=== PATIENT | male | born 1960 | race Caucasian/White ===

== ENCOUNTER → 2017-08-02 | Outpatient (CLI) | payer OTHER ==
[~2017-08-02] MED LIST: CEPHALEXIN 500500 M3 PO; HYDROCODONE-AP1 EAC6 PO; IBUPROFEN 800800 M1 PO; JANUMET 50-1,01 EACH PO; LIPITOR 20 MG T20 M1 PO; METFORMIN HCL1000 MG PO; MULTIVITAMINS PO; ZOLOFT 50 MG TA50 M1 PO
== END ==
LOC: M.MRI 07-23 17:16 → M.CT 07-30 07:30 → M.MRI 07-30 07:30
DX: M75.102 Unspecified rotator cuff tear or rupture of left shoulder, not specified as traumatic (principal); M48.061 Spinal stenosis, lumbar region without neurogenic claudication; M25.412 Effusion, left shoulder; M75.22 Bicipital tendinitis, left shoulder; M51.26 Other intervertebral disc displacement, lumbar region; M25.78 Osteophyte, vertebrae; G95.89 Other specified diseases of spinal cord; Z98.890 Other specified postprocedural states

== ENCOUNTER → 2021-02-13 | Outpatient (CLI) | payer OTHER | LOC: M.LAB 15:26 | PROVIDERS: ATTEND Internal Medicine Gastroenterology | DX: Z01.812 Encounter for preprocedural laboratory examination (principal); Z20.822 Contact with and (suspected) exposure to COVID-19 ==

== ENCOUNTER 2021-06-27 16:53 | Emergency (ER) | payer OTHER ==
[~2021-06-27] VITALS: Ht 182.9 cm; Wt 70.3 kg
[2021-06-27] MEDS ORDERED: METFORMIN HCL500 M3 PO (17:11)
[2021-06-27] MEDS ORDERED: CEPHALEXIN500 MG PO (17:46)
[2021-06-27] MEDS ORDERED: HYDROCODON-ACE1 EAC7 PO (17:55)
[2021-06-27 18:05] VITALS: BP 154/93
== END 2021-06-27 18:05 | disposition home or self-care (01) ==
LOC: M.ERS 16:53
DX: S61.412A Laceration without foreign body of left hand, initial encounter (principal); S80.212A Abrasion, left knee, initial encounter; E11.9 Type 2 diabetes mellitus without complications; Z79.899 Other long term (current) drug therapy; Z98.890 Other specified postprocedural states; V29.88XA Motorcycle rider (driver) (passenger) injured in other specified transport accidents, initial encounter; Y93.55 Activity, bike riding; Y92.413 State road as the place of occurrence of the external cause; Y99.9 Unspecified external cause status